=== PATIENT | female | born 1980 | race Caucasian/White ===

== ENCOUNTER 2023-01-11 11:27 | Emergency (ER) | payer MEDICAID ==
[~2023-01-11] VITALS: Ht 162.6 cm; Wt 66.2 kg
[2023-01-11 11:35] VITALS: BP_SYST 143; PULSE 80; RESP 18; TEMP 97.9; O2SAT 99
[2023-01-11] MEDS ORDERED: CETI1TAB2 PO (12:02)
== END 2023-01-11 12:23 | disposition home or self-care (01) ==
LOC: SED 11:27
DX: R51.9 Headache, unspecified (principal); Z79.899 Other long term (current) drug therapy; J01.90 Acute sinusitis, unspecified
CPT/HCPCS: 99282

== ENCOUNTER 2023-04-21 14:32 | Emergency (ER) | payer MEDICAID ==
[~2023-04-21] VITALS: Ht 165.1 cm; Wt 63.5 kg
[~2023-04-21 14:32] MED LIST: CETI1TAB2 PO
[2023-04-21 14:35] VITALS: BP_SYST 138; PULSE 64; RESP 18; TEMP 97.7; O2SAT 100
[2023-04-21] MEDS ORDERED: HYDROcodone/ACETAMIN 10-325 MG TAB PO ONE (20:00)
[2023-04-21] MEDS ORDERED: KETOROLAC TROMETHAMINE 30 MG VIAL IM ONE (20:00)
[2023-04-21] MEDS ORDERED: IBUP-1969 PO (20:02)
[2023-04-21] MEDS ORDERED: HYDROcodone/ACETAMIN 5-325 MG TAB (NORCO/ VICODIN) PO ONE (20:30)
[2023-04-21 20:40] VITALS: BP_SYST 127; PULSE 73; RESP 20; TEMP 97.5; O2SAT 100
== END 2023-04-21 20:40 | disposition home or self-care (01) ==
LOC: SED 14:32
DX: S46.812A Strain of other muscles, fascia and tendons at shoulder and upper arm level, left arm, initial encounter (principal); G40.909 Epilepsy, unspecified, not intractable, without status epilepticus; Z79.899 Other long term (current) drug therapy; W01.0XXA Fall on same level from slipping, tripping and stumbling without subsequent striking against object, initial encounter; Y93.89 Activity, other specified; Y92.89 Other specified places as the place of occurrence of the external cause; Y99.8 Other external cause status
CPT/HCPCS: 99283; 73030; 96372; J1885